=== PATIENT | male | born 1945 | race Caucasian/White ===

== ENCOUNTER 2017-01-14 07:19 | Day surgery (SDC) | payer OTHER, BC ==
[2017-01-13 12:26] VITALS: BMI 31.3
[2017-01-14 09:46] VITALS: TEMP 97.4
[2017-01-14 10:36] VITALS: BP 111/76; PULSE 65
--- NOTE | 2017-01-15 14:19 | PATH ---
Surgical Pathology Report Patient Name: [facility]. Rec. #: [id number] /Age/Gender: 1945 (Age: 71) / M Account: [id number] Location: U-ENDOSCOPY Taken: 01/14/2017 Received: 01/14/2017 Reported: 01/15/2017 Physicians: Sudheer Monroe D.O. Specimen(s) Received A: BX TRANSVERSE COLON POLYP B: POLYP SIGMOID Clinical History Screening Diverticulosis, colon polyps Final Diagnosis A. COLON, TRANSVERSE, POLYP, BIOPSY: TUBULAR ADENOMA. B. COLON, SIGMOID, POLYP, POLYPECTOMY: TUBULAR ADENOMA. Electronically Signed Ramírez Mcdowell M.D. Gross Description A. Received in formalin, labeled "biopsy transverse colon polyp" is a hernandez, irregular portion of soft tissue measuring 0.3 cm in greatest dimension. The specimen is submitted in toto in one cassette. B. Received in formalin, labeled "biopsy sigmoid colon polyp" is a hernandez, irregular portion of soft tissue measuring 0.4 cm in greatest dimension. The specimen is submitted in toto in one cassette. 01/14/2017 saudi01/14/2017
== END 2017-01-14 10:45 | disposition home or self-care (01) ==
LOC: JASU-ENDO 07:19
PROVIDERS: ATTEND Internal Medicine Gastroenterology
PROC: 0DBL8ZX Excision of Transverse Colon, Via Natural or Artificial Opening Endoscopic, Diagnostic (ICD-10-PCS; 2017-01-14)
PROC: 0DBN8ZX Excision of Sigmoid Colon, Via Natural or Artificial Opening Endoscopic, Diagnostic (ICD-10-PCS; principal; 2017-01-14 09:00)
DX: Z12.11 Encounter for screening for malignant neoplasm of colon (principal); D12.5 Benign neoplasm of sigmoid colon; K57.30 Diverticulosis of large intestine without perforation or abscess without bleeding; K64.8 Other hemorrhoids; D12.3 Benign neoplasm of transverse colon
CPT/HCPCS: 88305-TC